=== PATIENT | female | born 2005 ===

== ENCOUNTER 2025-02-01 10:25 | Outpatient (CLI) | payer OTHER | END 2025-02-01 10:27 | disposition home or self-care (01) | LOC: PRENATAL 10:25 | PROVIDERS: ATTEND Obstetrics & Gynecology Maternal & Fetal Medicine | DX: O44.02 Complete placenta previa NOS or without hemorrhage, second trimester (principal); O43.93 Unspecified placental disorder, third trimester; Z3A.19 19 weeks gestation of pregnancy ==